=== PATIENT | male | born 2005 | race Caucasian/White ===

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

== ENCOUNTER → 2023-05-27 13:44 | Outpatient (BNVA) | payer MEDICAID, SELFPAY | PROVIDERS: PCP Family Medicine; Visit Provider Family Medicine | DX: R36.9 Urethral discharge, unspecified (principal); Z72.51 High risk heterosexual behavior; Z20.9 Contact with and (suspected) exposure to unspecified communicable disease | CPT/HCPCS: 86592; 86695; 86696; 87491; 87591 ==

== ENCOUNTER → 2024-12-13 12:09 | Outpatient (BNVA) | payer BC, SELFPAY | PROVIDERS: PCP Nurse Practitioner Family; Visit Provider Nurse Practitioner Family | DX: R36.9 Urethral discharge, unspecified (principal); Z72.51 High risk heterosexual behavior | CPT/HCPCS: 87491; 87591; 87661 ==

== ENCOUNTER → 2024-12-20 14:40 | Outpatient (BNVA) | payer BC, SELFPAY | PROVIDERS: Visit Provider Nurse Practitioner Family | DX: R36.9 Urethral discharge, unspecified (principal); Z72.51 High risk heterosexual behavior | CPT/HCPCS: 81000; 87086 ==